=== PATIENT | male | born 1960 | race Caucasian/White ===

== ENCOUNTER 2022-05-03 02:27 | Emergency (ER) | payer MEDICAID ==
[~2022-05-03] VITALS: Ht 185.4 cm; Wt 91.0 kg
[2022-05-03] MEDS ORDERED: CELE100C MT (03:27)
[2022-05-03] MEDS ORDERED: ABIL10 MT (03:27)
[2022-05-03 03:35] VITALS: BP 144/72
== END 2022-05-03 03:49 | disposition home or self-care (01) ==
LOC: ER 02:27
DX: Z76.0 Encounter for issue of repeat prescription (principal); F20.89 Other schizophrenia
CPT/HCPCS: 99283

== ENCOUNTER 2022-05-21 01:13 | Emergency (ER) | payer MEDICAID ==
[~2022-05-21] VITALS: Ht 185.4 cm; Wt 100.0 kg
[~2022-05-21 01:13] MED LIST: ABIL10 MT; CELE100C MT
[2022-05-21] MEDS ORDERED: OLANZAPINE 10 MG/VIAL IM STA (05:35)
[2022-05-21 06:29] LABS: CLARITY URINE TURBID (CLEAR); COLOR URINE ORANGE (YELLOW); KETONES URINE TRACE (NEGATIVE); LEUKOCYTE ESTERASE URINE 1+ (NEGATIVE); NITRITE URINE NEGATIVE (NEGATIVE); OCCULT BLOOD URINE NEGATIVE (NEGATIVE); PH URINE 5.5 (4.5-8.0); PROTEIN URINE 2+ (NEGATIVE); SPECIFIC GRAVITY URINE 1.018 (1.005-1.030)
[2022-05-21 06:53] LABS: *AMPHETAMINES SCREEN URINE PRESUMTIVE POSITIVE (NEGATIVE); *BARBITURATES SCREEN URINE NEGATIVE (NEGATIVE); *BENZODIAZEPINES SCREEN URINE NEGATIVE (NEGATIVE); *COCAINE SCREEN URINE NEGATIVE (NEGATIVE); CANNABINOID URINE SCREEN PRESUMTIVE POSITIVE (NEGATIVE); METHADONE URINE SCREEN NEGATIVE (NEGATIVE); OPIATES URINE SCREEN NEGATIVE (NEGATIVE); PHENCYCLIDINE URINE SCREEN NEGATIVE (NEGATIVE)
[2022-05-21] MEDS: CARBAMAZEPINE 200MG TABLET PO SCH ×2 (10:00→21:00)
[2022-05-21] MEDS: OLANZAPINE 5MG TABLET PO SCH ×2 (10:59→21:00)
[2022-05-21] MEDS: CEPHALEXIN 250MG CAPSULE PO SCH ×3 (14:15→21:00)
[2022-05-22 02:22] LABS: BASOPHILS % 0.7 % (0.0-2.0); EOSINOPHILS % 2.3 % (0.0-5.0); HEMATOCRIT. 41.9 % (42.0-52.0); HEMOGLOBIN. 13.7 g/dL (14.0-18.0); LYMPHOCYTES % 10.4 % (20.0-50.0); MEAN CORPUSCULAR HEMOGLOBIN 27.4 pg (28.0-32.0); MEAN CORPUSCULAR VOLUME 83.7 fL (80.0-94.0); MEAN PLATELET VOLUME 8.5 fl (7.4-10.4); MONOCYTES % 7.7 % (2.0-8.0); NEUTROPHILS % 78.9 % (40.0-76.0); PLATELET 277 x1000/uL (130-400); RED CELL DISTRIBUTION WIDTH 16.9 % (11.6-14.6)
[2022-05-22 02:30] LABS: CHLORIDE 106 mEq/L (98-107)
[2022-05-22 02:39] LABS: ETHANOL BLOOD < 10 mg/dL
[2022-05-22] MEDS ORDERED: CEPH500T MT (06:03)
[2022-05-22 06:13] VITALS: BP 132/70
== END 2022-05-22 06:18 | disposition home or self-care (01) ==
LOC: ER 01:13
DX: R45.851 Suicidal ideations (principal); F99 Mental disorder, not otherwise specified; F15.90 Other stimulant use, unspecified, uncomplicated; F12.90 Cannabis use, unspecified, uncomplicated; R03.0 Elevated blood-pressure reading, without diagnosis of hypertension; Z20.822 Contact with and (suspected) exposure to COVID-19
CPT/HCPCS: 36415; 80053; 80305; 80307; 80320; 80329; 81003; 85025; 96372; 99285; C9803; J3490; U0003; U0005; Z7610; G0480